=== PATIENT | female | born 1960 | race Caucasian/White ===

== ENCOUNTER → 2016-10-26 | Outpatient (CLI) | payer BC ==
--- NOTE | 2016-10-26 16:06 | DI ---
BILATERAL RIB SERIES WITH PA CHEST X-RAY, 10/26/2016 3:35 PM: Clinical History: Rib pain. PA Chest: Previous Exam: None at this facility. There is no acute soft tissue or bony abnormality. Heart size is normal. Lungs are clear. Mediastinal structures are normal. BILATERAL Rib Series: There is no rib fracture noted. No blastic or lytic bony change is present. The visualized portions o f the lungs are clear. Readin. Bilateral rib exam is normal. 2. Normal PA chest x-ray.
--- NOTE | 2016-10-26 16:40 | DI ---
THORACIC SPINE SERIES, 10/26/2016 2:42 PM: Clinical History: Thoracic back pain. Previous Exam: None at this facility. Upright AP and lateral and upright lateral swimmer's view are submitted. The vertebral bodies are of normal height and size. There is disc space narrowing at T6-7. The remaining levels show normal disc spaces. Pedicles and posterior elements are normal. There are no paravertebral masses. Reading: Degenerative disc space narrowing is present at T6-7. The study is otherwise normal.
== END ==
LOC: ORTHO 15:11
PROVIDERS: ATTEND Physician Assistant
DX: M54.6 Pain in thoracic spine (principal); R07.81 Pleurodynia; M47.814 Spondylosis without myelopathy or radiculopathy, thoracic region; S20.211A Contusion of right front wall of thorax, initial encounter; V89.2XXA Person injured in unspecified motor-vehicle accident, traffic, initial encounter
CPT/HCPCS: 71110; 72072